=== PATIENT | female | born 1985 | race Caucasian/White ===

== ENCOUNTER 2016-08-16 01:36 | Emergency (ER) | payer OTHER ==
[2016-08-16] MEDS ORDERED: LIDOCAINE 1% INJ-PF (10 MG/ML) 30 ML SDV INJ ONE (01:51)
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
[2016-08-16 02:47] VITALS: BP 111/71
== END 2016-08-16 02:47 | disposition home or self-care (01) ==
LOC: ER 01:36
PROC: 0HQNXZZ Repair Left Foot Skin, External Approach (ICD-10-PCS; principal; 2016-08-16)
DX: S91.012A Laceration without foreign body, left ankle, initial encounter (principal); W25.XXXA Contact with sharp glass, initial encounter
CPT/HCPCS: 99282; 12001; J3490

== ENCOUNTER 2016-08-21 10:06 | Emergency (ER) | payer OTHER ==
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
[2016-08-21 11:16] VITALS: BP 114/71
== END 2016-08-21 11:16 | disposition home or self-care (01) ==
LOC: ER 10:06
DX: S16.1XXA Strain of muscle, fascia and tendon at neck level, initial encounter (principal); X50.0XXA Overexertion from strenuous movement or load, initial encounter; Y93.49 Activity, other involving dancing and other rhythmic movements
CPT/HCPCS: 99283

== ENCOUNTER 2017-12-26 12:18 | Emergency (ER) | payer OTHER, MEDICAID ==
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
[2017-12-26 15:31] VITALS: BP 113/84
== END 2017-12-26 15:31 | disposition home or self-care (01) ==
LOC: ER 12:18
DX: S16.1XXA Strain of muscle, fascia and tendon at neck level, initial encounter (principal); M54.2 Cervicalgia; V49.60XA Unspecified car occupant injured in collision with unspecified motor vehicles in traffic accident, initial encounter; F17.200 Nicotine dependence, unspecified, uncomplicated
CPT/HCPCS: 99283

== ENCOUNTER 2018-02-21 11:16 | Emergency (ER) | payer MEDICAID, OTHER ==
[2018-02-21] MEDS ORDERED: NORMAL SALINE 1000 ML 1,000 ML IV ONE (12:11)
[2018-02-21] MEDS ORDERED: DIPHENHYDRAMINE HCL 50 MG/ML VIAL IV ONE (12:11)
[2018-02-21] MEDS ORDERED: METOCLOPRAMIDE HCL INJ/PF 10 MG/2 ML SDV IV ONE (12:11)
--- NOTE | 2018-02-21 12:20 | ER Document Report ---
ED Medical Screen (RME) - General Chief Complaint: Headache Stated Complaint: HEADACHE/VOMITING Time Seen by Provider: 02/21/18 12:07 Notes: RAPID MEDICAL EVALUATION DISCLOSURE I have seen this patient as part of a Rapid Medical Evaluation and, if applicable, placed any initially appropriate orders. The patient will be seen and fully evaluated, including a full history and physical exam, by a provider ( in Main ED or Fast Track) when a room becomes available. 32-year-old female here with complaints of left-sided headache radiating to the back of her head ongoing constantly since yesterday. The headache is sharp, not worse with light or sound, and is associated with nausea/vomiting blurry vision. She has tried Tylenol and ibuprofen with not much relief. She has not had any fevers chills neck pain numbness tingling weakness. She denies any previous history of headaches brain aneurysms. No traumatic injury/impact. EXAM Cranial nerves grossly intact Strength 5/5 with intact sensation all extremities Finger to nose coordination intact TRAVEL OUTSIDE OF THE [place] IN LAST 30 DAYS: No - Related Data Allergies/Adverse Reactions: No Known Allergies Allergy (Verified 08/21/16 10:15) Past Medical History - Social History Family history: Arthritis, CAD, CVA, DM, Hyperlipidemia, Hypertension, Malignancy, Thyroid Disfunction Pulmonary Medical History: Reports: Hx Bronchitis Renal/ Medical History: Denies: Hx Peritoneal Dialysis Musculoskeltal Medical History: Reports Hx Fibromyalgia, Reports Hx Muscle Spasm , Reports Hx Musculoskeletal Trauma Skin Medical History: Reports Hx Cellulitis - Immunizations Immunizations up to date: Yes Hx Diphtheria, Pertussis, Tetanus Vaccination: Yes Physical Exam - Vital signs Vitals: Temp Pulse Resp BP Pulse Ox 98.4 F 95 20 125/79 100 02/21/18 11:25 02/21/18 11:25 02/21/18 11:25 02/21/18 11:25 02/21/18 11:25 Course - Vital Signs Vital signs: Temp Pulse Resp BP Pulse Ox 98.4 F 95 20 125/79 100 02/21/18 11:25 02/21/18 11:25 02/21/18 11:25 02/21/18 11:25 02/21/18 11:25
--- NOTE | 2018-02-21 14:19 | ER Document Report ---
HPI - HPI Pain Level: 4 Notes: Patient is a 32-year-old female no significant past medical history presents to the ED complaining of a left-sided headache that starts in her left occiput and radiates up around to her left eye 1 day. Patient states that she has had nausea and 3 episodes of vomiting associated. Patient states that she also had some blurry vision. Patient denies any previous history of migraines or headaches, but does have chronic neck issues. She denies any drug allergies. Patient states that she is otherwise been eating and drinking without any difficulties. She has been urinating normally and having normal bowel movements. Denies any fever, head injury, neck pain, changes in speech/ mentation/hearing, URI, sore throat, chest pain, palpitations, syncope, cough, shortness of breath, wheeze, dyspnea, abdominal pain, nausea/vomiting/diarrhea, urinary retention, dysuria, hematuria, loss of control of bowel or bladder, numbness/tingling, saddle anesthesia, muscle paralysis/weakness, or rash. Patient was seen and evaluated by the the [facility] provider and was medicated about 1.5 hours ago. Patient states that she has since had all symptoms resolved and would like to go home. - ROS Systems Reviewed and Negative: Yes All other systems reviewed and negative - REPRODUCTIVE Reproductive: DENIES: : - DERM Skin Color: Normal Past Medical History - Social History Smoking Status: Never Smoker Family History: Reviewed & Not Pertinent Patient has suicidal ideation: No Patient has homicidal ideation: No Pulmonary Medical History: Reports: Hx Bronchitis Renal/ Medical History: Denies: Hx Peritoneal Dialysis Musculoskeletal Medical History: Reports Hx Fibromyalgia, Reports Hx Muscle Spasm, Reports Hx Musculoskeletal Trauma Skin Medical History: Reports Hx Cellulitis - Immunizations Immunizations up to date: Yes Hx Diphtheria, Pertussis, Tetanus Vaccination: Yes Vertical Provider Document - CONSTITUTIONAL Agree With Documented VS: Yes Notes: PHYSICAL EXAMINATION: GENERAL: Well-appearing, well-nourished and in no acute distress. A&Ox4. Answers questions appropriately. HEAD: Atraumatic, normocephalic. EYES: Pupils equal round and reactive to light, extraocular movements intact, sclera anicteric, conjunctiva are normal. No nystagmus. Vis sarabia intact. ENT: EAC clear b/l. TM's intact b/l without erythema, fluid, or perforation. Nares patent and without discharge. oropharynx clear without exudates. No tonsilar hypertrophy or erythema. Moist mucous membranes. No sinus tenderness. NECK: Normal range of motion, supple without lymphadenopathy. No rigidity. No midline tenderness. Spurling negative. I did palpate in the area of the occipital nerve bundles which pt states correlates with the location to the start of her SLADE's. LUNGS: Breath sounds clear to auscultation bilaterally and equal. No wheezes rales or rhonchi. HEART: Regular rate and rhythm without murmurs, rubs, gallops. ABDOMEN: Soft, nontender, nondistended abdomen. No guarding, no rebound. No masses appreciated. Normal bowel sounds present. No CVA tenderness bilaterally. Musculoskeletal: Ext b/l: FROM to passive/active. Strength 5+/5. No deficits noted. No bony tenderness of extremities. Back: FROM to passive/active. Strength 5+/5. No vertebral point tenderness, stepoffs, or deformities. No other bony tenderness or ecchymosis. Extremities: No cyanosis, clubbing, or edema b/l. Peripheral pulses 2+. Capillary refill less than 2 seconds. NEUROLOGICAL: NIH 0. GCS 15. Cranial nerves grossly intact. Normal speech, normal gait. Normal sensory, motor exams. Reflexes 2+ b/l. CARL's negative. Pronator drift negative. Heel/levine, finger/nose wnl. PSYCH: Normal mood, normal affect. SKIN: Warm, Dry, normal turgor, no rashes or lesions noted. - INFECTION CONTROL TRAVEL OUTSIDE OF THE [place] IN LAST 30 DAYS: No Course - Re-evaluation Re-evalutation: 02/21/18 14:16 Patient is an afebrile, well-hydrated 32-year-old female who presents to the ED with a headache, suspect occipital neuritis/tension headache, currently resolved. Vitals are acceptable without any significant tachycardia, tachypnea , or hypoxia. PE is otherwise unremarkable for any focal neurological deficits. Patient is nontoxic-appearing and is tolerating p.o. without any difficulties. Patient did receive fluids, Benadryl, and Reglan which completely resolved her headache and symptoms. Patient states that she is feeling much better and would like to go home. No other labs or imaging warranted at this time based on H&P. Low suspicion for any acute glaucoma, temporal arteritis, meningitis, intracranial hemorrhage, ischemic stroke, or fracture at this time. Patient is aware that this condition can change from initial presentation and that she needs to monitor symptoms closely for any acute changes. Conservative measures for symptoms. Recheck with your PCM in 3- 5 days. Consider consult with a neurologist. Return to the ED with any worsening/concerning symptoms otherwise as reviewed in discharge. Patient is in agreement. - Vital Signs Vital signs: Temp Pulse Resp BP Pulse Ox 98.4 F 95 20 125/79 100 02/21/18 11:25 02/21/18 11:25 02/21/18 11:25 02/21/18 11:25 02/21/18 11:25 Discharge - Discharge Clinical Impression: Headache Qualifiers: Headache type: unspecified Headache chronicity pattern: acute headache Intractability: not intractable Qualified Code(s): R51 - Headache Condition: Stable Disposition: HOME, SELF-CARE Instructions: Headache ([facility]), Antinausea Medication ([facility]) Additional Instructions: Rest, Ice Tylenol/ibuprofen as needed Light stretches daily Strength exercises as able Moist heat and massage may help F/u with your PCP in 3-5 days for a recheck Consider consult(s) with Orthopedics/physical therapy for ongoing/worsening symptoms Return to the ED with any worsening symptoms and/or development of fever, headache, changes in behavior/mentation/vision/speech, chest pain, palpitations , syncope, shortness of breath, trouble breathing, abdominal pain, n/v/d, blood in stool/urine, loss of control of bowel/bladder, urinary retention, muscle weakness/paralysis, saddle anesthesia, numbness/tingling, or other worsening symptoms that are concerning to you. Prescriptions: Ondansetron [Zofran Odt 4 mg Tablet] 1 - 2 tab PO Q4H PRN #15 tab.rapdis PRN Reason: For Nausea/Vomiting Referrals: BANDAR EISENBERG MD [NO LOCAL MD] - Follow up as needed
[2018-02-21 14:31] VITALS: BP 110/71
== END 2018-02-21 14:31 | disposition home or self-care (01) ==
LOC: ER 11:16
DX: R51 Headache (principal); R11.2 Nausea with vomiting, unspecified; H53.8 Other visual disturbances
CPT/HCPCS: 99284; 96361; 96374; 96375; J1200; J2765; J7030

== ENCOUNTER 2018-05-24 09:02 | Emergency (ER) | payer MEDICAID ==
[2018-05-24 09:12] VITALS: BP 118/79
--- NOTE | 2018-05-24 09:41 | ER Document Report ---
HPI - HPI Patient complains to provider of: Left eye drainage Onset: This morning Onset/Duration: Gradual Quality of pain: Achy Pain Level: 3 Context: Patient presents complaining of left eye drainage with matting. Patient does not wear contact lenses but does wear glasses. Patient denies any injury to the eye denies any significant change in vision. Associated Symptoms: Other - Left eye drainage Exacerbated by: Denies Relieved by: Denies Similar symptoms previously: No Recently seen / treated by doctor: No - ROS ROS below otherwise negative: Yes Systems Reviewed and Negative: Yes All other systems reviewed and negative - CONSTITUTIONAL Constitutional: DENIES: Fever, Chills - EENT EENT: REPORTS: Eye problems - left eye - REPRODUCTIVE Reproductive: DENIES: : - DERM Skin Color: Normal Skin Problems: None Past Medical History - General Information source: Patient - Social History Smoking Status: Never Smoker Frequency of alcohol use: None Drug Abuse: None Occupation: [employer] worker Lives with: Family Family History: Reviewed & Not Pertinent Patient has suicidal ideation: No Patient has homicidal ideation: No Pulmonary Medical History: Reports: Hx Bronchitis Renal/ Medical History: Denies: Hx Peritoneal Dialysis Musculoskeletal Medical History: Reports Hx Fibromyalgia, Reports Hx Muscle Spasm, Reports Hx Musculoskeletal Trauma Skin Medical History: Reports Hx Cellulitis Surgical Hx: Negative - Immunizations Immunizations up to date: Yes Hx Diphtheria, Pertussis, Tetanus Vaccination: Yes Vertical Provider Document - CONSTITUTIONAL Agree With Documented VS: Yes Exam Limitations: No Limitations General Appearance: WD/WN, No Apparent Distress - INFECTION CONTROL TRAVEL OUTSIDE OF THE [place] IN LAST 30 DAYS: No - HEENT HEENT: Atraumatic, Normocephalic Notes: Patient with mild injection to sclera of left eye, yellow mucopurulent drainage matting eyelashes of left eye. No corneal abrasion, foreign body, dendrite or ulcer. Extraocular movements intact. - NECK Neck: Normal Inspection - RESPIRATORY Respiratory: No Respiratory Distress - MUSCULOSKELETAL/EXTREMETIES Musculoskeletal/Extremeties: MAEW - NEURO Level of Consciousness: Awake, Alert, Appropriate Motor/Sensory: No Motor Deficit - DERM Integumentary: Warm, Dry, No Rash Course - Vital Signs Vital signs: Temp Pulse Resp BP Pulse Ox 98.4 F 86 16 118/79 97 05/24/18 09:08 05/24/18 09:08 05/24/18 09:08 05/24/18 09:08 05/24/18 09:08 Discharge - Discharge Clinical Impression: Conjunctivitis Qualifiers: Conjunctivitis type: unspecified Laterality: left Qualified Code(s): H10.9 - Unspecified conjunctivitis Condition: Stable Disposition: HOME, SELF-CARE Instructions: Conjunctivitis ([facility]), Eyedrop Use ([facility]) Additional Instructions: Return immediately for any new or worsening symptoms Followup with your primary care provider, call tomorrow to make a followup appointment Good handwashing Prescriptions: Polymyxin B Sulfate/Tmp [Polytrim Oph Soln 10 ml] 1 drop LFT_EYE ASDIR #1 bottle Forms: Return to Work Referrals: AGUSTIN RODRIGUEZ MD [Primary Care Provider] - Follow up as needed [facility] [Provider Group] - Follow up as needed
== END 2018-05-24 09:50 | disposition home or self-care (01) ==
LOC: ER 09:02
DX: H10.9 Unspecified conjunctivitis (principal)
CPT/HCPCS: 99282

== ENCOUNTER 2019-06-05 11:16 | Emergency (ER) | payer BC, MEDICAID ==
--- NOTE | 2019-06-05 11:31 | ER Document Report ---
ED Medical Screen (RME) - General Chief Complaint: Bodyaches Stated Complaint: FLU LIKE SYMPTOMS Time Seen by Provider: 06/05/19 11:27 Primary Care Provider: AGUSTIN RODRIGUEZ MD [Primary Care Provider] - Follow up as needed Mode of Arrival: Ambulatory Information source: Patient Notes: This 34-year-old female G6, P5 presents to the emergency department with body aches runny nose diarrhea since Tuesday. Patient did get her flu shot last week. Reports low-grade fever. Denies vomiting. Patient is laughing happy no distress. Does complain of stomachache from diarrhea denies contractions. Denies pain with void. Denies vaginal bleeding. Did call her OB and they told her not to come in to come to the ED. I have greeted and performed a rapid initial assessment of this patient. A comprehensive ED assessment and evaluation of the patient, analysis of test results and completion of the medical decision making process will be conducted by additional ED providers. Dictation of this chart was performed using voice recognition software; therefore, there may be some unintended grammatical errors. TRAVEL OUTSIDE OF THE [place] IN LAST 30 DAYS: No - Related Data Allergies/Adverse Reactions: No Known Allergies Allergy (Verified 06/05/19 11:24) Past Medical History - Social History Chew tobacco use (# tins/day): No Frequency of alcohol use: None Drug Abuse: None Family history: Arthritis, CAD, CVA, DM, Hyperlipidemia, Hypertension, Malignancy, Thyroid Disfunction Pulmonary Medical History: Reports: Hx Bronchitis Renal/ Medical History: Denies: Hx Peritoneal Dialysis Musculoskeltal Medical History: Reports Hx Fibromyalgia, Reports Hx Muscle Spasm, Reports Hx Musculoskeletal Trauma Skin Medical History: Reports Hx Cellulitis - Immunizations Immunizations up to date: Yes Hx Diphtheria, Pertussis, Tetanus Vaccination: Yes Doctor's Discharge - Discharge Referrals: AGUSTIN RODRIGUEZ MD [Primary Care Provider] - Follow up as needed
[2019-06-05 12:06] LABS: A TYPE INFLUENZA AG NEGATIVE (NEGATIVE); B INFLUENZA AG NEGATIVE (NEGATIVE)
[2019-06-05 12:47] VITALS: BP 111/66
--- NOTE | 2019-06-05 12:56 | ER Document Report ---
HPI - HPI Time Seen by Provider: 06/05/19 11:27 Pain Level: 5 Context: Patient is a 34-year-old female who presents the emergency department with a chief complaint of rhinorrhea, body aches, and diarrhea since Tuesday. Patient states that she also had a low-grade fever yesterday she has been taking Tylenol since yesterday. Patient also reports that she got her flu shot last week. Patient denies any contractions at this time. Patient called her PATIENT FINANCIAL SPECIALIST and was told to be evaluated in the emergency department for flulike symptoms. - CONSTITUTIONAL Constitutional: DENIES: Fever, Chills - EENT EENT: REPORTS: Sore Throat. DENIES: Ear Pain, Eye problems - RESPIRATORY Respiratory: DENIES: Coughing - GASTROINTESTINAL Gastrointestinal: DENIES: Abdominal Pain, Black / Bloody Stools - REPRODUCTIVE LMP: 11/2018 Reproductive: REPORTS: : - MUSCULOSKELETAL Musculoskeletal: DENIES: Extremity pain - DERM Skin Color: Normal Skin Problems: None Past Medical History - General Information source: Patient - Social History Smoking Status: Never Smoker Chew tobacco use (# tins/day): No Frequency of alcohol use: None Drug Abuse: None Family History: Reviewed & Not Pertinent Patient has suicidal ideation: No Patient has homicidal ideation: No Pulmonary Medical History: Reports: Hx Bronchitis Renal/ Medical History: Denies: Hx Peritoneal Dialysis Musculoskeletal Medical History: Reports Hx Fibromyalgia, Reports Hx Muscle Spasm, Reports Hx Musculoskeletal Trauma Skin Medical History: Reports Hx Cellulitis - Immunizations Immunizations up to date: Yes Hx Diphtheria, Pertussis, Tetanus Vaccination: Yes Vertical Provider Document - CONSTITUTIONAL Agree With Documented VS: Yes Exam Limitations: No Limitations General Appearance: No Apparent Distress - INFECTION CONTROL TRAVEL OUTSIDE OF THE [place] IN LAST 30 DAYS: No - HEENT HEENT: Atraumatic, Normocephalic, PERRLA, Pharyngeal Tenderness, Pharyngeal Erythema. negative: Conjuctival Injection, Pharyngeal Exudate, Tympanic Membrane Red, Tympanic Membrane Bulging - NECK Neck: Normal Inspection, Supple. negative: Lymphadenopathy-Left, Lymphadenopathy-Right - RESPIRATORY Respiratory: Breath Sounds Normal, No Respiratory Distress - CARDIOVASCULAR Cardiovascular: Regular Rate, Regular Rhythm Pulses: Normal: Radial - MUSCULOSKELETAL/EXTREMETIES Musculoskeletal/Extremeties: FROM - NEURO Level of Consciousness: Awake, Alert, Appropriate - DERM Integumentary: Warm, Dry, No Rash Course - Re-evaluation Re-evalutation: 06/05/19 I have advised the patient to take Unisom and Benadryl made her legs "feel funny.". I also advised her that she can continue taking Tylenol. I suggested she follow-up with [facility]. She has an appointment with them next week. Rapid strep, and influenza screens are all negative. I have advised the patient to get plenty of rest. Very low suspicion for any life- threatening etiology at this time. Symptoms consistent with upper respiratory viral infection. Advised patient to drink plenty of fluids. She is in agreement with this plan. Follow-up precautions were given. Verbal discharge instructions were given to the patient. They verbalized understanding. They are stable for discharge. - Vital Signs Vital signs: Temp Pulse Resp BP Pulse Ox 98.1 F 100 16 111/66 99 06/05/19 11:30 06/05/19 11:30 06/05/19 11:30 06/05/19 11:30 06/05/19 11:30 Discharge - Discharge Clinical Impression: Upper respiratory infection, viral Condition: Stable Disposition: HOME, SELF-CARE Instructions: Upper Respiratory Illness ([facility]) Additional Instructions: Your symptoms are most likely due to a viral infection it should resolve over the next 7-14 days. You may also use tylenol as needed for aches and thorat discomfort. You may also take Unisom if you do not want to take Benadryl. Take per bottle directions. Please be sure to drink plenty of fluids and get rest. Return to the emergency department if you are having difficulty breathing, chest pain, persistent vomiting, or any other symptoms that are concerning to you. Forms: Return to Work Referrals: [facility] [Provider Group] - Follow up in 1 week
== END 2019-06-05 13:04 | disposition home or self-care (01) ==
LOC: ER 11:16
DX: J06.9 Acute upper respiratory infection, unspecified (principal); J34.89 Other specified disorders of nose and nasal sinuses; M79.10 Myalgia, unspecified site; R19.7 Diarrhea, unspecified
CPT/HCPCS: 87070; 87804; 87880; 99283

== ENCOUNTER 2019-07-09 13:49 | Emergency (ER) | payer OTHER, BC, MEDICAID ==
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
== END 2019-07-09 14:37 | disposition home or self-care (01) ==
LOC: ER 13:49
DX: O9A.213 Injury, poisoning and certain other consequences of external causes complicating pregnancy, third trimester (principal); O26.893 Other specified pregnancy related conditions, third trimester; M54.5 Low back pain; V87.7XXA Person injured in collision between other specified motor vehicles (traffic), initial encounter; Z3A.33 33 weeks gestation of pregnancy
CPT/HCPCS: 99282

== ENCOUNTER 2019-07-09 14:41 | Outpatient (CLI) | payer OTHER, BC, MEDICAID ==
[2019-07-09 16:00] LABS: APPEARANCE,URINE CLEAR; BILIRUBIN,URINE NEGATIVE (NEGATIVE); COLOR,URINE STRAW; GLUCOSE, URINE NEGATIVE (NEGATIVE); KETONES,URINE NEGATIVE (NEGATIVE); LEUKOCYTE ESTERASE,URINE NEGATIVE (NEGATIVE); NITRITE,URINE NEGATIVE (NEGATIVE); PROTEIN,URINE NEGATIVE (NEGATIVE); URINE SPECIFIC GRAVITY 1.009; UROBILINOGEN,URINE NEGATIVE mg/dL (<2.0)
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
[2019-07-09 16:27] LABS: URINE AMPHETAMINES SCREEN NEGATIVE; URINE BARBITURATES SCREEN NEGATIVE; URINE BENZODIAZEPINES SCREEN NEGATIVE; URINE COCAINE SCREEN NEGATIVE; URINE MARIJUANA (THC) SCREEN NEGATIVE; URINE METHADONE SCREEN NEGATIVE; URINE PHENCYCLIDINE SCREEN NEGATIVE
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
== END 2019-07-09 18:11 | disposition home or self-care (01) ==
LOC: LC 14:41
PROVIDERS: ATTEND Obstetrics & Gynecology Gynecology
PROC: 4A1HXCZ Monitoring of Products of Conception, Cardiac Rate, External Approach (ICD-10-PCS; principal; 2019-07-09)
DX: Z04.1 Encounter for examination and observation following transport accident (principal); Z3A.33 33 weeks gestation of pregnancy
CPT/HCPCS: 59025; 76815; 80307; 81001

== ENCOUNTER 2019-08-16 00:32 | Inpatient (IN) | payer BC, MEDICAID ==
[2019-08-16] MEDS ORDERED: DINOPROSTONE 10 MG VAGINAL INSERT.SR PV PRN (00:36)
[2019-08-16] MEDS ORDERED: RINGERS SOLUTION,LACTATED 300 ML IV ONE (00:36)
[2019-08-16] MEDS ORDERED: RINGERS SOLUTION,LACTATED 1,000 ML IV PRN (00:36)
[2019-08-16 01:08] LABS: ABSOLUTE BASOPHILS # (AUTO) 0.1 10^3/uL (0.0-0.2); ABSOLUTE EOSINOPHILS # (AUTO) 0.1 10^3/uL (0.0-0.6); ABSOLUTE LYMPHOCYTES (AUTO) 2.9 10^3/uL (0.5-4.7); ABSOLUTE MONOCYTES (AUTO) 0.7 10^3/uL (0.1-1.4); ABSOLUTE NEUT (AUTO) 5.8 10^3/uL (1.7-8.2); BASOPHILS % (AUTO) 0.9 % (0-2); EOSINOPHILS % (AUTO) 0.6 % (0-6); HEMATOCRIT 36.5 % (36.0-47.0); HEMOGLOBIN 12.2 g/dL (12.0-15.5); LYMPHOCYTES % (AUTO) 30.1 % (13-45); MEAN CORPUSCULAR HEMOGLOBIN 27.7 pg (27.0-33.4); MEAN CORPUSCULAR HGB CONC 33.4 g/dL (32.0-36.0); MEAN CORPUSCULAR VOLUME 83 fl (80-97); MONOCYTES % (AUTO) 7.1 % (3-13); PLATELET COUNT 218 10^3/uL (150-450); RED CELL DISTRIBUTION WIDTH 17.2 % (11.5-14.0); SEGMENTED NEUTROPHILS % (AUTO) 61.3 % (42-78); TOTAL CELLS COUNTED % (AUTO) 100 %; WHITE BLOOD COUNT 9.5 10^3/uL (4.0-10.5)
[2019-08-16 01:11] LABS: APPEARANCE,URINE SLIGHTLY-CLOUDY; BILIRUBIN,URINE NEGATIVE (NEGATIVE); COLOR,URINE STRAW; GLUCOSE, URINE NEGATIVE (NEGATIVE); KETONES,URINE NEGATIVE (NEGATIVE); LEUKOCYTE ESTERASE,URINE TRACE (NEGATIVE); NITRITE,URINE NEGATIVE (NEGATIVE); PROTEIN,URINE NEGATIVE (NEGATIVE); URINE SPECIFIC GRAVITY 1.006; UROBILINOGEN,URINE NEGATIVE mg/dL (<2.0)
[2019-08-16 01:35] LABS: URINE AMPHETAMINES SCREEN NEGATIVE; URINE BARBITURATES SCREEN NEGATIVE; URINE BENZODIAZEPINES SCREEN NEGATIVE; URINE COCAINE SCREEN NEGATIVE; URINE MARIJUANA (THC) SCREEN NEGATIVE; URINE METHADONE SCREEN NEGATIVE; URINE PHENCYCLIDINE SCREEN NEGATIVE
[2019-08-16] MEDS ORDERED: DINOPROSTONE 10 MG VAGINAL INSERT.SR ONE (01:37)
[2019-08-16] MEDS ORDERED: ZOLPIDEM TARTRATE 5 MG TABLET ONE (01:55)
[2019-08-16] MEDS ORDERED: ZOLPIDEM TARTRATE 5 MG TABLET PO PRN ×2 (01:57→20:52)
--- NOTE | 2019-08-16 06:16 | Admission Physical ---
Datetime Report Generated by CPN: 08/16/2019 06:16 CURRENT ADMISSION Chief Complaint: Scheduled Induction of Labor Indication for Induction: Polyhydramnios Admit Impression : Term, Intrauterine Admit Plan: Admit to Unit; Initiate Labor Induction Protocol ALLERGIES Medication Allergies: No Medication Allergies: No Known Allergies (08/16/2019) Latex: No Latex Allergies OBSTETRICAL HISTORY EDC: 08/23/2019 00:00 : 6 Para: 5 Term: 4 : 0 SAB: 1 IAB: 0 Ectopic: 0 Livin Cesareans: 0 VBACs: 0 Multiple Births: 1 Gestational Diabetes: No Rh Sensitization: No Incompetent Cervix: No BENJAMÍN: No Infertility: No ART Treatment: No Uterine Anomaly: No IUGR: No Hx Previous C/S: No Macrosomia: No Hx Loss/Stillborn: No PIH: No Hx : No Placenta Previa/Abruption: No Depression/PP Depression: Yes PTL/PROM: No Post Hemorrhage: Yes Obstetrical History Comments: G1- 2008 at 39 weeks, 10lbs 4oz female- IOL for GDM, pre-E, PPH with 3 blood transfusions G2-2010 at 39 weeks, 7lbs 15oz male G3- 2011 at 37 weeks twins A-7lbs 12oz, B- 8lbs 6oz, GDM baby B breech G4- 2017 at 39 weeks 8lbs 9oz female G5- 2019 SAB at 10weeks G6- current SEE RECORDS Alcohol: No Marijuana : No Cocaine: No Other Illicit Drugs: No Cigarettes: Never Smoker. 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 Heart Disease: No Hosp/Surgery: No Autoimmune Disorder: No Anesthetic Complications: No Kidney Disease: No Abnormal Pap Smear: No Neuro/Epilepsy: No Psychiatric Disorders: No Other Medical Diseases: No Hepatitis/Liver Disease: No Significant Family History: No Varicosities/Phlebitis: No Trauma/Violence : No Thyroid Dysfunction: No Medical History Comments: anxiety, depression, PPD, D_C INFECTIOUS HISTORY Gonorrhea: No Genital Herpes: No Chlamydia: No Tuberculosis: No Syphilis: No Hepatitis: No HIV/AIDS Exposure: No Rash or Viral Illness: No HPV: Yes Infectious History Comments: 2019 HPV PHYSICAL EXAM General: Normal HEENT: Normal Neurologic: Normal Thyroid: Normal Heart: Normal Lungs: Normal Breast: Deferred Back: Normal Abdomen: Normal Genitourinary Exam: Normal Extremities: Normal DTRs: Normal Pelvic Type: Adequate Vital Signs: Reviewed VAGINAL EXAM Dilatation: 2 Effacement: 50 Station: -3 MEMBRANES Pooling: Negative Membranes: Intact FETUS A EGA: 39.0 Monitoring: External US FHR- Baseline: 140 Variability: Moderate 6-25bpm Decelerations: None FHR Category: Category I Presentation: Vertex Admit Comment: Admit for cervadil and induction PLANS FOR LABOR AND DELIVERY Labor and Delivery: None Feeding Preference: Breast Benefit of Breast Feed Discussed: Yes (Annotations: Data stored by N on behalf of user) Circumcision: N/A INFORMED CONSENT Signature: with User ID: [email or web address]
[2019-08-16] MEDS ORDERED: PENICILLIN G-K 5 MILLION UNIT VIAL ONE ×2 (13:53→18:38)
[2019-08-16] MEDS ORDERED: ACETAMINOPHEN 325 MG TABLET ONE (16:16)
[2019-08-16] MEDS ORDERED: OXYTOCIN/NORMAL SALINE 20 UNIT/1,000 ML RTUINJ ONE (17:34)
[2019-08-16] MEDS ORDERED: MISOPROSTOL 0.2 MG TABLET ONE (19:44)
[2019-08-16] MEDS ORDERED: LIDOCAINE 1% INJ-PF (10 MG/ML) 30 ML SDV ONE (19:44)
[2019-08-16] MEDS ORDERED: OXYTOCIN 10 UNIT/ML VIAL ONE (19:44)
[2019-08-16] MEDS ORDERED: FENTANYL CITRATE INJ/PF 100 MCG/2 ML AMPUL ONE (19:45)
[2019-08-16] MEDS ORDERED: PHENYLEPHRINE HCL INJ/PF 10 MG/1 ML SDV ONE (19:45)
[2019-08-16] MEDS ORDERED: EPHEDRINE SULFATE INJ 50 MG/1 ML AMPULE ONE (19:45)
[2019-08-16] MEDS ORDERED: FENTANYL/BUPIVACAINE/NS/PF 0 MCG/0 ML RTUINJ EPI ONE (19:45)
[2019-08-16] MEDS ORDERED: BUPIVACAINE HCL 0.25 % INJ/PF (2.5 MG/1 ML) 30 ML VIAL ONE (19:46)
[2019-08-16] MEDS ORDERED: PSEUDOEPHEDRINE HCL 30 MG TABLET PO PRN (20:52)
[2019-08-16] MEDS ORDERED: ACETAMINOPHEN WITH CODEINE #3 TABLET PO PRN (20:52)
[2019-08-16] MEDS ORDERED: MAGNESIUM HYDROXIDE SUSP 30 ML UDCUP PO PRN (20:52)
[2019-08-16] MEDS ORDERED: DIBUCAINE 1% OINTMENT 28 GM TP PRN (20:52)
[2019-08-16] MEDS ORDERED: MEASLES,MUMPS&RUBELLA VACC/PF 0.5 ML VIAL SUBCUT PRN (20:52)
[2019-08-16] MEDS ORDERED: DIPH/PERTUSS(ACELL)/TETANUS VAC/PF 0.5 ML SYR (>=10YO) IM PRN (20:52)
[2019-08-16] MEDS ORDERED: ACETAMINOPHEN 650 MG SUPP.RECT PR PRN (20:52)
[2019-08-16] MEDS ORDERED: PROMETHAZINE HCL INJ 25 MG/1 ML VIAL IV PRN (20:52)
[2019-08-16] MEDS ORDERED: BENZOCAINE/MENTHOL AEROSOL SPRAY 56 ML TOP PRN (20:52)
[2019-08-16] MEDS ORDERED: OXYTOCIN/NORMAL SALINE 20 UNIT/1,000 ML RTUINJ IV PRN (20:52)
[2019-08-16] MEDS ORDERED: NA PHOS,M-B/NA PHOS,DI-BA (ADULT) 133 ML ENEMA PR PRN (20:52)
[2019-08-16] MEDS ORDERED: GLYCERIN/WITCH HAZEL LEAF 1 EACH MED..WIPE TP PRN (20:52)
[2019-08-16] MEDS ORDERED: DIPHENHYDRAMINE HCL 25 MG CAPSULE PO PRN (20:52)
[2019-08-16] MEDS ORDERED: PROMETHAZINE HCL 25 MG TABLET PO PRN (20:52)
[2019-08-16] MEDS ORDERED: PROMETHAZINE HCL 25 MG SUPP.RECT PR PRN (20:52)
[2019-08-16] MEDS ORDERED: IBUPROFEN 800 MG TABLET ONE (21:24)
[2019-08-16] MEDS: IBUPROFEN 800 MG TABLET PO SCH (21:30)
--- NOTE | 2019-08-16 22:55 | Delivery Summary ---
Del Sum A-C Datetime Report Generated by CPN: 08/16/2019 22:54 DELIVERY PERSONNEL DELIVERY PERSONNEL: [id number] Delivery Doctor:: North Meyer MD Labor and Delivery Nurse:: Denice Belle RNmixer lever operator Nurse:: Kimberly Dumont RN Audit Officer:: Italia Goodman RN Nursery Nurse:: Alaina Patiño RN Nursery Nurse:: Dorothea Simpson RN Hat Trimmer/PLAN COORDINATOR: Marylin Soto, Hat Trimmer/PLAN COORDINATOR: Tricia Brooks, MATHEMATICAL ENGINEER MATERNAL INFORMATION Delivery Anesthesia: None Medications After Delivery: Pitocin Bolus-Please Comment; Pitocin Drip 20 Units/1000ml NSS; Cytotec 1000mcg Per Rectum/Vagina Estimated Blood Loss (ml): 250 Delivery QBL: 250 Delivery QBL Comment: delivery 250 recovery 124 total 374 Maternal Complications: None LABOR SUMMARY EDC: 08/23/2019 00:00 No. Babies in Womb: 1 Attempted: No Labor Anesthesia: None LABOR INFORMATION Reason for Induction: Polyhydramnios Onset of Labor: 08/09/2019 15:18 Cervical Ripening Agents: Cytotec @ 1000 Other Ripening Agents: cervidil out Oxytocin: Induction Group B Beta Strep: postive Antibiotics # of Doses: 2 Antibiotics Time of Last Dose: 1829 Name of Antibiotic Given: penicillin Steroids Given: None Reason Steroids Not Administered: Not Applicable MEMBRANES Membranes Rupture Method: Spontaneous Rupture of Membranes: 08/16/2019 15:18 Length of Rupture (hr): 5.17 Amniotic Fluid Color: Clear Amniotic Fluid Amount: Small Amniotic Fluid Odor: None STAGES OF LABOR Stage 3 hr: 0 Stage 3 min: 8 Total Time in Labor hr: 173 Total Time in Labor min: 18 VAGINAL DELIVERY Episiotomy: None Laceration #1: None Laceration Extension #1: N/A Laceration Repair: Not Applicable Sponge Count Correct: N/A CSECTION DELIVERY Primary Indication: N/A Secondary Indication: N/A CSection Incidence: N/A Labor: N/A Elective: N/A CSection Incision: N/A BABY A INFORMATION Delivery Date/Time: 08/16/2019 20:28 Method of Delivery: Vaginal Born in Route : No : N/A Forceps: N/A Vacuum Extraction: N/A Shoulder Dystocia : No PRESENTATION/POSITION BABY A Presentation: Cephalic Cephalic Presentation: Vertex Breech Presentation: N/A PLACENTA INFORMATION BABY A Placenta Delivery Time : 08/16/2019 20:36 Placenta Method of Delivery: Spontaneous Placenta Status: Delivered SCORES BABY A Heart Rate 1 min: >100 bpm Resp Effort 1 min: Good Cry Reflex Irritability 1 min: Cough or Sneeze or Pulls Away Muscle Tone 1 min: Active Motion Color 1 min: Blue/Pale Resuscitation Effort 1 min: Tactile Stimulation SCORE 1 MIN: 8 Heart Rate 5 min: >100 bpm Resp Effort 5 min: Good Cry Reflex Irritability 5 min: Cough or Sneeze or Pulls Away Muscle Tone 5 min: Active Motion Color 5 min: Body [place], Extremities Blue Resuscitation Effort 5 min: Tactile Stimulation SCORE 5 MIN: 9 INFANT INFORMATION BABY A Gestational Age at Delivery: 39.0 Gestational Status: Full Term- 39- 40.6 Weeks Infant Outcome : Liveborn Condition : Stable Sex: Female WEIGHT/LENGTH BABY A Infant Birthweight (gm): 4471 Infant Weight (lb): 9 Infant Weight (oz): 14 Length (in): 22.00 Length (cm): 55.88 CORD INFORMATION BABY A No. Cord Vessels: 3 Nuchal Cord : N/A Cord Blood Taken: Yes-For Storage (Mom's Blood type +) Infant Suction: None ASSESSMENT BABY A Infant Complications: None Physical Findings at Delivery: Within Normal Limits Respirations: Appears Normal Skin to Skin: Yes Skin to Skin Time (min): 55 Transferred To: Remains with Mother SIGNATURES Signature: with User ID: [email or web address]
[2019-08-17] MEDS ORDERED: BENZOCAINE/MENTHOL AEROSOL SPRAY 56 ML ONE (02:41)
[2019-08-17] MEDS ORDERED: IBUPROFEN 800 MG TABLET ONE (05:59)
[2019-08-17] MEDS: IBUPROFEN 800 MG TABLET PO SCH ×3 (06:02→21:15)
[2019-08-17 07:54] LABS: HEMATOCRIT 33.9 % (36.0-47.0); HEMOGLOBIN 11.3 g/dL (12.0-15.5); MEAN CORPUSCULAR HEMOGLOBIN 27.6 pg (27.0-33.4); MEAN CORPUSCULAR HGB CONC 33.2 g/dL (32.0-36.0); MEAN CORPUSCULAR VOLUME 83 fl (80-97); PLATELET COUNT 196 10^3/uL (150-450); RED BLOOD COUNT 4.08 10^6/uL (3.72-5.28); RED CELL DISTRIBUTION WIDTH 17.4 % (11.5-14.0); WHITE BLOOD COUNT 11.9 10^3/uL (4.0-10.5)
[2019-08-17] MEDS: FAMOTIDINE 20 MG TABLET PO SCH ×3 (09:35→21:15)
[2019-08-17] MEDS: FERROUS SULFATE 325 MG TABLET PO SCH ×2 (09:35→17:40)
[2019-08-17] MEDS: PRENATAL VITAMIN W DHA CAPSULE PO SCH (09:35)
[2019-08-17] MEDS: SENNOSIDES/DOCUSATE 8.6-50 MG 1 EACH TABLET PO SCH (09:35)
[2019-08-17] MEDS: DOCUSATE SODIUM 100 MG CAPSULE PO SCH ×2 (09:35→17:40)
[2019-08-18] MEDS: IBUPROFEN 800 MG TABLET PO SCH (05:36)
[2019-08-18] MEDS: SENNOSIDES/DOCUSATE 8.6-50 MG 1 EACH TABLET PO SCH (09:38)
[2019-08-18] MEDS: PRENATAL VITAMIN W DHA CAPSULE PO SCH (09:38)
[2019-08-18] MEDS: DOCUSATE SODIUM 100 MG CAPSULE PO SCH (09:38)
--- NOTE | 2019-08-18 11:45 | PDOC DISCHARGE SUMMARY ---
Impression - Admit/DC Date/PCP Admission Date/Primary Care Provider: 08/16/19 00:32 SARATH QUICK MD Discharge Date: 08/18/19 - Discharge Diagnosis (1) Encounter for induction of labor Is this a current diagnosis for this admission?: Yes (2) Polyhydramnios affecting Is this a current diagnosis for this admission?: Yes (3) Vaginal delivery Is this a current diagnosis for this admission?: Yes - Additional Information Discharge Diet: Regular Discharge Activity: Balance Activity w/Rest, Pelvic Rest Referrals: [facility] [Provider Group] Prescriptions: Ibuprofen [Motrin 800 mg Tablet] 800 mg PO Q8HP PRN #90 tablet PRN Reason: Home Medications: Butalb/Acetaminophen/Caffeine [Fioricet (50-325-40 mg) Tablet] 1 - 2 tab PO Q4H 07/09/19 Vits96/Iron Fum/Folic [ Tablet] 1 each PO DAILY 07/09/19 Ibuprofen [Motrin 800 mg Tablet] 800 mg PO Q8HP PRN #90 tablet 08/18/19 HPI Gestational Age: 39 Reason(s) for Admission: Induction of Labor Procedures: NST Intrapartum Procedure(s): Spontaneous Vaginal Delivery Results Laboratory Results: WBC 11.9 10^3/uL (4.0-10.5) H 08/17/19 07:25 RBC 4.08 10^6/uL (3.72-5.28) 08/17/19 07:25 Hgb 11.3 g/dL (12.0-15.5) L 08/17/19 07:25 Hct 33.9 % (36.0-47.0) L 08/17/19 07:25 MCV 83 fl (80-97) 08/17/19 07:25 MCH 27.6 pg (27.0-33.4) 08/17/19 07:25 MCHC 33.2 g/dL (32.0-36.0) 08/17/19 07:25 RDW 17.4 % (11.5-14.0) H 08/17/19 07:25 Plt Count 196 10^3/uL (150-450) 08/17/19 07:25 Lymph % (Auto) 30.1 % (13-45) 08/16/19 00:54 [place] % (Auto) 7.1 % (3-13) 08/16/19 00:54 Eos % (Auto) 0.6 % (0-6) 08/16/19 00:54 Baso % (Auto) 0.9 % (0-2) 08/16/19 00:54 Absolute Neuts (auto) 5.8 10^3/uL (1.7-8.2) 08/16/19 00:54 Absolute Lymphs (auto) 2.9 10^3/uL (0.5-4.7) 08/16/19 00:54 Absolute Monos (auto) 0.7 10^3/uL (0.1-1.4) 08/16/19 00:54 Absolute Eos (auto) 0.1 10^3/uL (0.0-0.6) 08/16/19 00:54 Absolute Basos (auto) 0.1 10^3/uL (0.0-0.2) 08/16/19 00:54 Seg Neutrophils % 61.3 % (42-78) 08/16/19 00:54 Urine Color STRAW 08/16/19 00:45 Urine Appearance SLIGHTLY-CLOUDY 08/16/19 00:45 Urine pH 7.0 (5.0-9.0) 08/16/19 00:45 Ur Specific [place] 1.006 08/16/19 00:45 Urine Protein NEGATIVE mg/dL (NEGATIVE) 08/16/19 00:45 Urine Glucose (UA) NEGATIVE mg/dL (NEGATIVE) 08/16/19 00:45 Urine Ketones NEGATIVE mg/dL (NEGATIVE) 08/16/19 00:45 Urine Blood NEGATIVE (NEGATIVE) 08/16/19 00:45 Urine Nitrite NEGATIVE (NEGATIVE) 08/16/19 00:45 Urine Bilirubin NEGATIVE (NEGATIVE) 08/16/19 00:45 Urine Urobilinogen NEGATIVE mg/dL (<2.0) 08/16/19 00:45 Ur Leukocyte Esterase TRACE (NEGATIVE) H 08/16/19 00:45 Urine Ascorbic Acid NEGATIVE (NEGATIVE) 08/16/19 00:45 Urine Opiates Screen NEGATIVE 08/16/19 00:45 Urine Methadone Screen NEGATIVE 08/16/19 00:45 Ur Barbiturates Screen NEGATIVE 08/16/19 00:45 Ur Phencyclidine Scrn NEGATIVE 08/16/19 00:45 Ur Amphetamines Screen NEGATIVE 08/16/19 00:45 U Benzodiazepines Scrn NEGATIVE 08/16/19 00:45 Urine Cocaine Screen NEGATIVE 08/16/19 00:45 U Marijuana (THC) Screen NEGATIVE 08/16/19 00:45 RPR NONREACTIVE (NONREACTIVE) 08/16/19 00:54 Blood Type A POSITIVE 08/16/19 00:54 Antibody Screen NEGATIVE 08/16/19 00:54 Plan Plan of Treatment: follow up at [facility] in 4 weeks for post check
[2019-08-18 12:17] VITALS: BP 117/59
== END 2019-08-18 14:21 | disposition home or self-care (01) | DRG 807 ==
LOC: LR 00:32 → 2S 08-17 08:40
PROVIDERS: ADMIT Obstetrics & Gynecology; ATTEND Obstetrics & Gynecology
PROC: 10E0XZZ Delivery of Products of Conception, External Approach (ICD-10-PCS; principal; 2019-08-16)
PROC: 3E033VJ Introduction of Other Hormone into Peripheral Vein, Percutaneous Approach (ICD-10-PCS; 2019-08-16)
PROC: 4A1HXCZ Monitoring of Products of Conception, Cardiac Rate, External Approach (ICD-10-PCS; 2019-08-16)
DX: O40.3XX0 Polyhydramnios, third trimester, not applicable or unspecified (principal); Z37.0 Single live birth; O99.824 Streptococcus B carrier state complicating childbirth; Z3A.39 39 weeks gestation of pregnancy
CPT/HCPCS: 36415; 80307; 81005; 85025; 85027; 86592; 86850; 86900; 86901; J2370; J2540; J2590; J3010; J3490

== ENCOUNTER → 2019-11-01 | Outpatient (CLI) | payer BC, MEDICAID ==
--- NOTE | 2019-11-01 10:01 | ER RDC ASSESSMENT REPORT ---
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 - Symptoms Subjective Fever([place] feverish): Yes Chills: Yes Muscule Aches: Yes Runny Nose: Yes Sore Throat: Yes Cough (New or worsening chronic cough): Yes Shortness of breath: Yes Nausea or Vomiting: Yes Headache: Yes Abdominal Pain: Yes Diarrhea(3 or more loose stools in last 24 hours): Yes - Do you have any of the following Chronic lung disease: Asthma or emphysema or COPD: No Cystic Fibrosis: No Diabetes: No High Blood Pressure: No Cardiovascular Disease: No Chronic Kidney Disease: No Chronic Liver Disease: No Chronic blood disorder like Sickle Cell Disease: No Weak immune system due to disease or medication: Yes Neurologic condition that limits movement: Yes Developmental delay - Moderate to Severe: No Recent (within past 2 weeks) or current : No - Objective Temperature: 98.4 F Pulse Rate: 86 Respiratory Rate: 20 O2 Sat by Pulse Oximetry: 99 Objective: Given above, testing performed: If Testing Performed: Test Specimen Type Sent to General - General Information source: Patient - Related Data Allergies/Adverse Reactions: No Known Allergies Allergy (Verified 08/16/19 01:56) Past Medical History - General Information source: Patient - Social History Smoking Status: Former Smoker Family History: Reviewed & Not Pertinent Pulmonary Medical History: Reports: Hx Bronchitis Renal/ Medical History: Denies: Hx Peritoneal Dialysis Musculoskeletal Medical History: Reports Hx Fibromyalgia, Reports Hx Muscle Spasm, Reports Hx Musculoskeletal Trauma Skin Medical History: Reports Hx Cellulitis Physical Exam - General General appearance: Appears well, Alert In distress: None - HEENT Head: Normocephalic Eyes: Normal Conjunctiva: Normal Nasal: Normal Pharynx: Normal. No: Erythema, Exudate, Peritonsillar abscess Neck: Normal, Supple - Respiratory Respiratory status: No respiratory distress Chest status: Nontender Breath sounds: Nonproductive cough. No: Rales, Rhonchi, Stridor, Wheezing - Cardiovascular Rhythm: Regular Heart sounds: S1 appreciated, S2 appreciated - Back Back: Normal - Psychological Associated symptoms: Normal affect, Normal mood - Skin Skin Temperature: Warm Skin Moisture: Dry Diagnostic Results Laboratory Results: Patient was called and notified of the negative rapid strep and influenza test. Patient advised that they will be a person under investigation and will need to quarantine at home for 2 weeks. Patient presents with upper respiratory symptoms worrisome for possible Covid 19. Patient does not have emergency worring symptoms such as difficulty breathing, shortness of breath, chest pain, pressure, confusion or cyanosis. Patient appears suitable for discharge. Patient's vital signs are stable and patient is nontoxic in appearance. Good return precautions have been discussed with patient, patient verbalized understanding and is agreeable with discharge plan of care at this time. RDC Discharge - Discharge Clinical Impression: screening for covid Upper respiratory infection Qualifiers: URI type: unspecified URI Qualified Code(s): J06.9 - Acute upper respiratory infection, unspecified Condition: Stable Disposition: Home; Selfcare
[2019-11-01 10:39] LABS: A TYPE INFLUENZA AG NEGATIVE (NEGATIVE); B INFLUENZA AG NEGATIVE (NEGATIVE)
== END ==
LOC: RDC 09:31
PROVIDERS: ATTEND Nurse Practitioner Family
DX: Z20.828 Contact with and (suspected) exposure to other viral communicable diseases (principal); J06.9 Acute upper respiratory infection, unspecified; R05 Cough; R11.2 Nausea with vomiting, unspecified; R51 Headache; R10.9 Unspecified abdominal pain; R19.7 Diarrhea, unspecified; Z87.891 Personal history of nicotine dependence
CPT/HCPCS: 87070; 87635; 87804; 87880

== ENCOUNTER 2019-12-17 07:43 | Observation (INO) | payer BC, MEDICAID ==
[2019-12-12 12:52] LABS: APPEARANCE,URINE CLEAR; BILIRUBIN,URINE NEGATIVE (NEGATIVE); COLOR,URINE STRAW; GLUCOSE, URINE NEGATIVE (NEGATIVE); KETONES,URINE NEGATIVE (NEGATIVE); LEUKOCYTE ESTERASE,URINE NEGATIVE (NEGATIVE); NITRITE,URINE NEGATIVE (NEGATIVE); PROTEIN,URINE NEGATIVE (NEGATIVE); URINE SPECIFIC GRAVITY 1.006; UROBILINOGEN,URINE NEGATIVE mg/dL (<2.0)
[2019-12-12 12:57] LABS: HEMATOCRIT 39.2 % (36.0-47.0); HEMOGLOBIN 13.9 g/dL (12.0-15.5); MEAN CORPUSCULAR HEMOGLOBIN 31.6 pg (27.0-33.4); MEAN CORPUSCULAR HGB CONC 35.4 g/dL (32.0-36.0); MEAN CORPUSCULAR VOLUME 89 fl (80-97); PLATELET COUNT 324 10^3/uL (150-450); RED CELL DISTRIBUTION WIDTH 14.5 % (11.5-14.0); WHITE BLOOD COUNT 7.3 10^3/uL (4.0-10.5)
[2019-12-12 13:15] LABS: ALBUMIN 4.7 g/dL (3.5-5.0); ALKALINE PHOSPHATASE 75 U/L (38-126); ANION GAP 11 (5-19); ASPARTATE AMINO TRANSFERASE 23 U/L (14-36); BILIRUBIN,TOTAL 0.3 mg/dL (0.2-1.3); BLOOD UREA NITROGEN 14 mg/dL (7-20); CARBON DIOXIDE 25 mmol/L (22-30); CHLORIDE 100 mmol/L (98-107); GLUCOSE 87 mg/dL (75-110); POTASSIUM 4.8 mmol/L (3.6-5.0); TOTAL PROTEIN 7.7 g/dL (6.3-8.2)
[~2019-12-17 07:43] MED LIST: CEFAZOLIN 1 GM/D5W RTU 1 GM/50 ML RTUPB IV PRN; LACTATED RINGERS 1000 ML IV PRN; LIDOCAINE 0.5% INJ-PF (5 MG/ML) 50 ML SDV SUBCUT PRN
[2019-12-17] MEDS ORDERED: CEFAZOLIN 1 GM/D5W RTU 1 GM/50 ML RTUPB IV ONE (07:45)
[2019-12-17] MEDS ORDERED: BUPIVACAINE HCL 0.5 % INJ/PF 30 ML SDV ONE (09:25)
[2019-12-17] MEDS ORDERED: BUPIVACAINE HCL 0.5%-EPI 1:200000 INJ/PF 30 ML VIAL ONE (09:26)
[2019-12-17] MEDS ORDERED: MIDAZOLAM 2 MG/2 ML INJ ONE (09:32)
[2019-12-17] MEDS ORDERED: HYDROMORPHONE HCL INJ/PF 2 MG/ML AMPULE ONE (09:32)
[2019-12-17] MEDS ORDERED: PROPOFOL INJ 200 MG/20 ML VIAL IV ONE (09:33)
[2019-12-17] MEDS ORDERED: CEFAZOLIN INJ 1 GM VIAL ONE (10:08)
[2019-12-17] MEDS ORDERED: PROMETHAZINE HCL INJ 25 MG/1 ML VIAL IV PRN ×2 (10:30)
[2019-12-17] MEDS ORDERED: DIPHENHYDRAMINE HCL 50 MG/ML VIAL IV PRN (10:30)
[2019-12-17] MEDS ORDERED: MEPERIDINE HCL/PF INJ 25 MG/1 ML DISP.SYRIN IV PRN (10:30)
[2019-12-17] MEDS ORDERED: OXYCODONE-ACETAMINOPHEN 5-325 MG TABLET PO PRN ×3 (10:30→13:21)
[2019-12-17] MEDS ORDERED: FENTANYL CITRATE INJ/PF 100 MCG/2 ML AMPUL IV PRN ×3 (10:30)
[2019-12-17] MEDS ORDERED: ONDANSETRON HCL INJ/PF 4 MG/2 ML SDV IV PRN (10:30)
--- NOTE | 2019-12-17 10:56 | Operative Report ---
Operative Report DATE OF SURGERY: 12/17/19 PREOPERATIVE DIAGNOSIS: Dysmenorrhea pelvic organ prolapse POSTOPERATIVE DIAGNOSIS: Same OPERATION: [facility] bilateral salpingectomy SURGEON: YULY SWARTZ ANESTHESIA: GA TISSUE REMOVED OR ALTERED: Uterus and tubes COMPLICATIONS: None ESTIMATED BLOOD LOSS: 100 cc PROCEDURE: Patient placed in a dorsal lithotomy vision prepped draped sterile fashion. Placed cervix visualized grasped a Kisha thyroid clamp posterior cul-de-sac was entered with sharp dissection posterior parietoperitoneum sutured to the posterior cuff with 2-0 Vicryl. Left uterosacral was clamped divided and suture 2-0 Vicryl repeated on the right. The cervix was sharply circumscribed and anterior parietoperitoneum was entered with sharp dissection. Serial clamps on each end of the of the broad ligaments each pedicle being clamped divided suture 2-0 Vicryl. This was continued to the level of the utero-ovarian ligaments which was crossclamped and on both sides and the uterus removed. The utero- ovarian ligament ligaments were then sutured with free tie of 2-0 Vicryl followed by suture tie of 2-0 Vicryl. The left fallopian tube was identified grasped with a [place] clamp clamp along the mesosalpinx and removed with sharp dissection. The mesosalpinx and sutured with 2-0 Vicryl. Procedure was placed on the right. The clips were inspected and hemostasis was noted. The cuff was closed with interrupted sutures of 2-0 Vicryl. Patient is urinating clear throughout the procedure and she was taken recovery room in good condition.
[2019-12-17] MEDS: FENTANYL CITRATE INJ/PF 100 MCG/2 ML AMPUL ONE ×2 (11:03→11:30)
[2019-12-17] MEDS ORDERED: KETOROLAC TROMETHAMINE INJ/PF 30 MG/1 ML SDV ONE (11:13)
[2019-12-17] MEDS ORDERED: ONDANSETRON 4 MG TAB.RAPDIS PO PRN (13:22)
[2019-12-17] MEDS ORDERED: MORPHINE SULFATE 10 MG/ML INJ IV PRN (13:23)
[2019-12-17] MEDS ORDERED: IBUPROFEN 800 MG TABLET PO SCH (14:00)
[2019-12-17] MEDS ORDERED: NEOSTIGMINE METHYLSULFATE 10 MG/10 ML VIAL ONE (14:18)
[2019-12-17] MEDS ORDERED: METOCLOPRAMIDE HCL INJ/PF 10 MG/2 ML SDV ONE (14:18)
[2019-12-17] MEDS ORDERED: LIDOCAINE 2% INJ-PF (20 MG/ML) 2 ML AMPUL ONE (14:18)
[2019-12-17] MEDS ORDERED: DEXAMETHASONE SOD PHOSPHATE INJ 4 MG/1 ML VIAL ONE (14:18)
[2019-12-17] MEDS ORDERED: ROCURONIUM BROMIDE INJ 50 MG/5 ML VIAL IV ONE (14:18)
[2019-12-17] MEDS ORDERED: GLYCOPYRROLATE 1 MG/5 ML VIAL ONE (14:18)
[2019-12-17] MEDS ORDERED: KETOROLAC TROMETHAMINE 60 MG/2 ML SDV ONE (14:18)
[2019-12-17] MEDS ORDERED: ONDANSETRON HCL INJ/PF 4 MG/2 ML SDV ONE (14:18)
[2019-12-17] MEDS ORDERED: HYDROXYZINE PAMOATE 25 MG CAPSULE PO PRN (15:57)
[2019-12-17 17:56] VITALS: BP 118/66
[2019-12-18] MEDS ORDERED: NORETHINDRONE E ESTRADIOL IRON PO SCH ×2 (10:00)
[2019-12-18] MEDS ORDERED: (PENDING PHARMACY ID) (Phentermine Hcl [Phentermine Hcl] 37.5 MG) PO SCH ×2 (10:00)
== END 2019-12-17 18:10 | disposition home or self-care (01) ==
LOC: OROUT 07:43 → 2N 12:48 → OROUT 12:48 → 2N 15:31 → OROUT 18:10
PROVIDERS: ADMIT Obstetrics & Gynecology Gynecology; ATTEND Obstetrics & Gynecology Gynecology
DX: N94.6 Dysmenorrhea, unspecified (principal); N92.1 Excessive and frequent menstruation with irregular cycle; N81.89 Other female genital prolapse; Z79.3 Long term (current) use of hormonal contraceptives; Z03.818 Encounter for observation for suspected exposure to other biological agents ruled out
CPT/HCPCS: 58262; 86900; 86901; 36415; 86850; 85027; 87635; 81025; 80053; 81001; 88307 ×2; 00944; G0379; G0378; J2250; J3490 ×5; J0690 ×2; J1100; J1885 ×2; S0119; J3010; J2765; J2270; J2710; J1170; J2405; J2704; 944

== ENCOUNTER → 2020-02-05 | Outpatient (CLI) | payer BC, MEDICAID ==
[2020-02-05 10:33] VITALS: BP 110/72
--- NOTE | 2020-02-05 10:33 | ER RDC ASSESSMENT REPORT ---
Intake - In the Last 14 days Have you traveled outside [place]?: No Have you been in close contact with someone CONFIRMED: No Worked in Healthcare?: No - Symptoms Subjective Fever([place] feverish): Yes Chills: Yes Muscule Aches: Yes Runny Nose: Yes Sore Throat: Yes Cough (New or worsening chronic cough): Yes Shortness of breath: Yes Nausea or Vomiting: Yes Headache: Yes Abdominal Pain: Yes Diarrhea(3 or more loose stools in last 24 hours): No - Do you have any of the following Chronic lung disease: Asthma or emphysema or COPD: No Cystic Fibrosis: No Diabetes: No High Blood Pressure: No Cardiovascular Disease: No Chronic Kidney Disease: No Chronic Liver Disease: No Chronic blood disorder like Sickle Cell Disease: No Weak immune system due to disease or medication: No Neurologic condition that limits movement: Yes Neurological Condition Comment: History of fibromyalgia Developmental delay - Moderate to Severe: No Recent (within past 2 weeks) or current : No Morbid Obesity (>100 pounds over ideal weight): No Obesity Comment: Height 510 weight 207 pounds - Objective Temperature: 99.5 F Pulse Rate: 108 Respiratory Rate: 20 Blood Pressure: 110/72 O2 Sat by Pulse Oximetry: 99 Objective: Given above, testing performed: If Testing Performed: Test Specimen Type Sent to General - General Information source: Patient Notes: Patient here at [facility] for COVID testing started to have symptoms on January 26 states someone at the [facility] office had tested positive. He feels he tested for COVID in October when symptomatic then return for preop COVID screening and tested negative when seen at [facility] for her preop work-up for hysterectomy in December was told that someone in the office had tested positive for COVID develop symptoms while starting to improve was told to gets tested again for COVID. Patient's PCP is in [facility] Dr. Lind and we will follow-up with him today. - Related Data Allergies/Adverse Reactions: No Known Allergies Allergy (Verified 12/17/19 07:55) Past Medical History - General Information source: Patient - Social History Smoking Status: Never Smoker Family History: Reviewed & Not Pertinent - Past Medical History Cardiac Medical History: Denies: Hx Coronary Artery Disease, Hx Heart Attack, Hx Hypertension Pulmonary Medical History: Reports: Hx Bronchitis Denies: Hx Asthma, Hx COPD, Hx Pneumonia Neurological Medical History: Denies: Hx Cerebrovascular Accident, Hx Seizures Renal/ Medical History: Denies: Hx Peritoneal Dialysis Musculoskeletal Medical History: Denies Hx Arthritis, Reports Hx Fibromyalgia, R eports Hx Muscle Spasm, Reports Hx Musculoskeletal Trauma Skin Medical History: Reports Hx Cellulitis Psychiatric Medical History: Reports: Hx Depression Physical Exam - General General appearance: Appears well, Alert In distress: None Notes: PHYSICAL EXAMINATION: GENERAL: Well-appearing and in no acute distress. HEAD: Atraumatic, normocephalic. EYES: sclera anicteric, conjunctiva are normal. ENT: nares patent. Moist mucous membranes. NECK: Normal range of motion, supple without lymphadenopathy LUNGS: CTAB and equal. No wheezes rales or rhonchi. Resp even and unlabored. Lung sounds clear. Occasional dry cough with deep breath. HEART: Regular rate and rhythm without murmurs ABDOMEN: Soft, nontender, normal bowel sounds, no guarding. EXTREMITIES: Normal range of motion, no pitting edema. No cyanosis. NEUROLOGICAL: Normal speech. PSYCH: Normal mood, normal affect. SKIN: Warm, Dry, normal turgor, Diagnostic Results Laboratory Results: Patient informed of negative rapid strep and negative rapid flu results . pending strep culture pending cover testing results. Patient provided instructions regarding COVID to include: As a person under investigation for Covid 19, the [place] department of Health and Human Services, division of public health advises you to adhere to the following guidance until your test results are reported to you. If your test result is positive, you will receive additional information from your provider and your local health department at that time. Remain at home until you are cleared by the health provider or public health aut horities. Keep a log of visitors to your home, notify any visitors to your home of your isolation status. If you plan to move to a new address or leave the [facility], notify the local health department in your County. Call your doctor or seek care if you have an urgent medical need. Before seeking medical care, call ahead to get instructions from the provider before arriving at the medical office clinic or hospital. Notify them that you are being tested for the virus that causes Covid 19 so that arrangements can be made, as necessary, to prevent transmission to others in the healthcare setting. Next, notify the local health department in your county. If a medical emergency arises and you need to call 911, inform the first responders that you are being tested for the virus that causes Covid 19. Next, notify the local health department in your county. Patient Education/Counseling Counseling/Education: Patient presents with upper respiratory symptoms worrisome for possible Covid 19. Patient does not have emergency worring symptoms such as difficulty breathing, shortness of breath, chest pain, pressure, confusion or cyanosis. Patient appears suitable for discharge. Patient instructed to follow-up with PCP Dr. Diogo garza. TO ED for persistent or worsening symptoms. patient's vital signs are stable and patient is nontoxic in appearance. Good return precautions have been discussed with patient, patient verbalized understanding and is agreeable with discharge plan of care at this time. RDC Discharge - Discharge Clinical Impression: COVID - 19 SCREENING Condition: Stable Disposition: Home; Selfcare
[2020-02-05 11:06] LABS: A TYPE INFLUENZA AG NEGATIVE (NEGATIVE); B INFLUENZA AG NEGATIVE (NEGATIVE)
== END ==
LOC: RDC 09:07
PROVIDERS: ATTEND Nurse Practitioner Family
DX: Z03.818 Encounter for observation for suspected exposure to other biological agents ruled out (principal); R50.9 Fever, unspecified; J02.9 Acute pharyngitis, unspecified; R09.89 Other specified symptoms and signs involving the circulatory and respiratory systems; R06.02 Shortness of breath; R11.2 Nausea with vomiting, unspecified; R10.9 Unspecified abdominal pain; R51 Headache
CPT/HCPCS: 87070; 87880; 87635; 87804; 99201; 99211; C9803